=== PATIENT | female | born 1990 | race Two or more races ===

== ENCOUNTER 2024-12-19 06:38 | Emergency (ER) | payer MEDICAID, SELFPAY ==
[2024-12-19 06:41] VITALS: BP 114/69; PULSE 60; RESP 20; TEMP 36.8; O2SAT 100; BMI 34.0
--- NOTE | 2024-12-19 06:52 | EDNOTE_ITS ---
<Statement entered by Paz Kapoor MD - 12/19/24 14:42> As co-signing physician, I was present and available for consult prn. I concur with the plan and care as documented by the midlevel provider. ED Wound/Laceration-RME/HPI General Chief Complaint: Wound/Laceration Stated Complaint: LAC TO RIGHT HAND Time Seen by Provider: 12/19/24 06:41 Arrival date/time: 12/19/24 06:38 34-year-old female presents to the emergency department today for complaint of laceration to her right hand. Patient reports that she excellently cut herself on a new yolk spray drier last night. Limitations: no limitations Related Data Home Medications ?Medication ?Instructions ?Recorded ?Confirmed Vitamin * 1 tab PO QDAY #0 tabs Previous Rx's ?Medication ?Instructions ?Recorded HYDROCODONE BIT/ACETAMINOPHEN 2 tab PO Q6HR PRN Patien t rated 10/01/15 (Vicodin 5/300) pain 7 to 10 #30 tabs bacitracin 500 unit/gram topical 1 applic topical TID 7 days #28.4 12/19/24 ointment grams ibuprofen 600 mg tablet 600 mg PO Q6H #30 tabs 12/19 Allergies Allergy/AdvReac Type Severity Reaction Status Date / Time No Known Allergies Allergy Verified 12/19/24 06:43 Review of Systems Review of Systems Systems Reviewed: All systems reviewed, normal except as documented Constitutional Constitutional: Reports system reviewed and no additional complaints, except as documented, Denies fever(s) and Denies headache(s) Eyes Eyes: Reports system reviewed and no additional complaints, except as documented and Denies blurry vision ENT Ears, Nose, Mouth, and Throat: Reports system reviewed and no additional complaints, except as documented, Denies headache(s), Denies nasal congestion and Denies nasal discharge Cardiovascular Cardiovascular: Reports system reviewed and no additional complaints, except as documented, Denies chest pain and Denies dyspnea Respiratory Respiratory: Reports system reviewed and no additional complaints, except as documented, Denies chest congestion, Denies cough and Denies dyspnea Gastrointestinal Gastrointestinal: Reports system reviewed and no additional complaints, except as documented and Denies abdominal pain Integumentary/Breasts Skin/Breast: Reports system reviewed and no additional complaints, except as documented, Denies rash and Reports wounds (Laceration right hand) Neurologic Neurologic: Reports system reviewed and no additional complaints, except as documented, Reports as per HPI and Denies headache(s) Past Medical History Past Medical History CARDIAC: Negative Congestive Heart Failure RESPIRATORY: Negative Chronic Obstructive Pulmonary Disease (COPD) GENITOURINARY: Negative Renal Disease REPRODUCTIVE: Negative Previous Pregnancies ENDOCRINE: Negative Diabetes Mellitus Type 1 or Diabetes Mellitus Type 2 OTHER HISTORY: Positive Chicken Pox Surgical History SURGICAL: Positive Neurologic Surgery Social History SMOKING STATUS: Never smoker ED Exam General Limitations: Present no limitations General appearance: Present alert and in no apparent distress Head Head exam: Present atraumatic Eye Eye exam: Present normal appearance, PERRL and EOMI ENT ENT exam: Present normal exam, normal oropharynx and mucous membranes moist Neck Neck exam: Present normal inspection, full ROM and trachea midline Chest Chest inspection: Present normal inspection and symmetric chest wall rise Respiratory Respiratory exam: Present normal lung sounds bilaterally Cardiovascular Cardiovascular exam: Present regular rate, normal rhythm and normal heart sounds Abdominal Exam Abdominal exam: Present soft and normal bowel sounds Extremities Exam Extremities exam: Present normal inspection and full ROM Back Exam Back exam: Present normal inspection and full ROM Neurological Exam Neurological exam: Present alert, oriented X3 and CN II-XII intact Psychiatric Psychiatric exam: Present normal affect and normal mood Skin Skin exam: Present warm, dry and other (Laceration right hand) Course Quality Measures none Orders Category Date Time Status Set Up Suture Tray STAT Care 12/19/24 06:52 Active Wound Care NOW Care 12/19/24 06:52 Active Lidocaine 1% 20 ml [Xylocaine 1% 20 ML] Med 12/19/24 06:52 Discontinued 20 ml INFL X1 ONE TET,DIP/PERT AC (Adult)-Tdap [Boostrix Adult (Tdap) Med 12/19/24 06:52 Discontinued Vacc] 0.5 ml IMI .ONCE ONE Vital Signs Vital signs: Vital Signs Temperature 98.2 F 12/19/24 06:41 Pulse Rate 60 12/19/24 06:41 Respiratory Rate 20 12/19/24 06:41 Blood Pressure 114/69 12/19/24 06:41 Pulse Oximetry (%) 100 12/19/24 06:41 Oxygen Delivery Method Room Air 12/19/24 06:41 O2 saturation 100% room air within normal limits Procedures -ED Laceration Laceration 1: Site: hand Side (If applicable): right Size (cm): 4 Description: linear Depth: simple, single layer Amount of anesthesia used (mL): 5 Pre-repair: wound explored and irrigated extensively Skin layer closed with: nylon Size (cm): 4-0 Number of sutures: 6 Wound / Laceration MDM Narrative MDM Narrative:: 34-year-old female presents to the emergency department today for complaint of laceration to her right hand. Patient reports that she excellently cut herself on a new yolk spray drier last night. On exam patient has an approximately 4 cm laceration to the palmar aspect of the right hand Wound irrigated copiously laceration repaired sick sutures applied wound is well-approximated no active bleeding no evidence of tendon or ligamentous injury Patient instructed to have sutures removed in 10 days Patient discharged home in no distress to follow-up with primary care doctor in the next 24 to 48 hours and for any worsening symptoms to return to the ER immediately Patient data External records reviewed:: [facility] previous records Clinical information provided by:: patient Social determinants that could affect healthcare access:: none Patient has the following chronic illnesses:: None How is presenting disease/condition affected by chronic disease/condition?: no chronic disease Evaluation data The following diagnostics were reviewed and interpreted by me:: other (specify) (N/A) Lab and/or radiology exams considered but not ordered:: Consider not ordered Interpretation Summary: N/A Medications / Prescriptions Medications or Prescriptions considered but not ordered:: Given Medication administrations:: Medication Administration History Discontinued Medications Diphtheria/Tetanus/Acell Pertussis (Diphth,Pertuss(Acell),Tet Vac 0.5 Ml Syr- Adult) 0.5 ml IMi .ONCE ONE Stop: 12/19/24 06:53 Last Admin: 12/19/24 07:12 Dose: 0.5 ml Documented By: VLAD Lidocaine HCl (Lidocaine Hcl 1% 20 Ml Vial) 20 ml INFL X1 ONE Stop: 12/19/24 06:53 Last Admin: 12/19/24 07:13 Dose: 20 ml Documented By: VLAD Given Consultations Consultation(s) initiated? (list below): No Diagnosis Wound Differential Diagnosis: laceration, abrasion and avulsion of skin Most likely diagnosis given after review of the tests above:: Laceration Admission Indicated Admission indicated?: not indicated Admission Request Was there a request for admission?: No Disposition Plan Disposition Plan: Discharge Discharge Attestation Discharge Attestation: The patient and all family members were given an opportunity to ask questions and understood the discharge instructions. Discharge instructions specifically effects, indications for sooner follow up or return to the emergency department, and the expected course of current diagnosis. Patient condition: Stable Discharge Plan Plan Patient Disposition: HOME (Self Care) Disposition Comment: Stable Prescriptions/Referrals Prescriptions/Med Rec: New bacitracin 500 unit/gram ointment 1 applic topical TID 7 Days Qty: 28.4 0RF ibuprofen 600 mg tablet 600 mg PO Q6H Qty: 30 0RF No Action Vitamin * 1 EACH tablet 1 tab PO QDAY Qty: 0 HYDROCODONE BIT/ACETAMINOPHEN (Vicodin 5/300) 1 TAB tablet 2 tab PO Q6HR PRN (Reason: Patient rated pain 7 to 10) Qty: 30 0RF Problem List Clinical Impression: Laceration of hand, right Patient/Caregiver Discharge Instructions Education Materials: ED Scar Tips to Minimize Additional Instructions: Please follow up with your primary care doctor in the next 24-48hrs for any worsening symptoms return here immediately Please have sutures removed in 10 days Print Language: Omani Stand Alone Forms: [employer] Award Info., Work/School Release, Patient Portal Info Letter Vaccines Vaccines Given During Stay: TDaP PA/TURKEY EGG GATHERER Supervising Physician PA/TUR[employer] E[employer] GATHERER Supervising Physician: Dr KAPOOR
[2024-12-19] MEDS: DIPHTH,PERTUSS(ACELL),TET VAC 0.5 ML SYR- ADULT IMi (07:12)
[2024-12-19] MEDS: LIDOCAINE HCL 1% 20 ML VIAL INFL (07:13)
== END 2024-12-19 07:47 | disposition home or self-care (01) ==
LOC: SERX 07:18
PROVIDERS: Emergency Provider Emergency Medicine; PCP Physician Assistant
DX: S61.411A Laceration without foreign body of right hand, initial encounter (principal); W29.0XXA Contact with powered kitchen appliance, initial encounter; Z23 Encounter for immunization
CPT/HCPCS: 12002; 90471; 90715; 99283; J3490

== ENCOUNTER 2025-06-02 12:04 | Emergency (ER) | payer MEDICAID, SELFPAY ==
[2025-06-02 12:25] VITALS: PULSE 86; RESP 16; TEMP 37.1; O2SAT 96; BMI 34.3
--- NOTE | 2025-06-02 12:26 | EDNOTE_ITS ---
Upper Respiratory Inf. RME/HPI General Chief Complaint: Fever Stated Complaint: FEVER, COUGH, CHEST PAIN Time Seen by Provider: 06/02/25 12:17 Source: patient Arrival date/time: 06/02/25 12:04 35-year-old female with no known medical history presents to the emergency room with a chief complaint of fever, cough, congestion x 4 days. Patient is currently . Mode of arrival: ambulatory Limitations: no limitations Related Data Home Medications ?Medication ?Instructions ?Recorded ?Confirmed Vitamin * 1 tab PO QDAY #0 tabs Previous Rx's ?Medication ?Instructions ?Recorded HYDROCODONE BIT/ACETAMINOPHEN 2 tab PO Q6HR PRN Patien t rated 10/01/15 (Vicodin 5/300) pain 7 to 10 #30 tabs ibuprofen 600 mg tablet 600 mg PO Q6H #30 tabs 12/19 albuterol sulfate 90 mcg/actuation 2 puff inhalation Q 6H PRN 06/02/25 aerosol inhaler (Ventolin HFA) shortness of breath or wheezing #6.7 grams amoxicillin 500 mg capsule 500 mg PO BID 7 days #14 ca ps 06/02/25 Allergies Allergy/AdvReac Type Severity Reaction Status Date / Time No Known Allergies Allergy Verified 06/02/25 12:07 Review of Systems Review of Systems Systems Reviewed: All systems reviewed, normal except as documented Constitutional Constitutional: Reports system reviewed and no additional complaints, except as documented, Denies fatigue, Denies fever(s), Denies headache(s) and Denies weakness Eyes Eyes: Reports system reviewed and no additional complaints, except as documented, Denies blurry vision and Denies change in vision ENT Ears, Nose, Mouth, and Throat: Reports system reviewed and no additional complaints, except as documented, Denies otalgia, Denies headache(s), Denies nasal congestion, Denies throat swelling and Denies vertigo Cardiovascular Cardiovascular: Reports system reviewed and no additional complaints, except as documented, Denies chest pain, Reports dyspnea and Denies dyspnea on exertion Respiratory Respiratory: Reports system reviewed and no additional complaints, except as documented, Reports change in phlegm color, Denies chest congestion, Reports cough, Reports dyspnea, Denies dyspnea on exertion and Denies wheezing Gastrointestinal Gastrointestinal: Reports system reviewed and no additional complaints, except as documented, Denies abdominal pain, Denies cramping, Denies nausea and Denies vomiting Genitourinary Genitourinary: Reports system reviewed and no additional complaints, except as documented Musculoskeletal Musculoskeletal: Reports system reviewed and no additional complaints, except as documented and Denies back pain Integumentary/Breasts Skin/Breast: Reports system reviewed and no additional complaints, except as documented and Denies wounds Neurologic Neurologic: Reports system reviewed and no additional complaints, except as documented, Denies confusion, Denies headache(s), Denies lack of coordination, Denies vertigo and Denies weakness Psychiatric Psychiatric: Reports system reviewed and no additional complaints, except as documented, Denies anxiety, Denies confusion, Denies depression, Denies paranoia, Denies suicidal ideation and Denies tactile hallucinations Endocrine Endocrine: Reports system reviewed and no additional complaints, except as documented and Denies fatigue Hematologic/Lymphatic Hematologic/Lymphatic: Reports system reviewed and no additional complaints, except as documented and Denies lymphadenopathy Allergic/Immunologic Allergic/Immunologic: Reports system reviewed and no additional complaints, except as documented, Denies throat swelling, Denies urticaria and Denies wheezing Past Medical History Past Medical History CARDIAC: Negative Congestive Heart Failure RESPIRATORY: Negative Chronic Obstructive Pulmonary Disease (COPD) GENITOURINARY: Negative Renal Disease REPRODUCTIVE: Negative Previous Pregnancies ENDOCRINE: Negative Diabetes Mellitus Type 1 or Diabetes Mellitus Type 2 OTHER HISTORY: Positive Chicken Pox Surgical History SURGICAL: Positive Neurologic Surgery Social History SMOKING STATUS: Never smoker ED Exam General Limitations: Present no limitations General appearance: Present alert and in no apparent distress Head Head exam: Present atraumatic Eye Eye exam: Present normal appearance, PERRL and EOMI ENT ENT exam: Present normal exam, normal oropharynx and mucous membranes moist Neck Neck exam: Present normal inspection, full ROM and trachea midline Chest Chest inspection: Present normal inspection and symmetric chest wall rise Respiratory Respiratory exam: Present normal lung sounds bilaterally; Absent respiratory distress, wheezes, stridor, accessory muscle use or prolonged expiratory phase Cardiovascular Cardiovascular exam: Present regular rate, normal rhythm and normal heart sounds; Absent tachycardia Abdominal Exam Abdominal exam: Present soft and normal bowel sounds Extremities Exam Extremities exam: Present normal inspection and full ROM Back Exam Back exam: Present normal inspection and full ROM Neurological Exam Neurological exam: Present alert, oriented X3 and CN II-XII intact Psychiatric Psychiatric exam: Present normal affect and normal mood Skin Skin exam: Present warm, dry, intact and normal color Course Quality Measures none Orders Category Date Time Status Bedside COVID-19 Antigen Test NOW Care 06/02/25 12:26 Completed Influenza A & B Rapid Panel Stat Lab 06/02/25 12:42 Completed Vital Signs Vital signs: Vital Signs Temperature 98.7 F 06/02/25 12:25 Pulse Rate 86 06/02/25 12:25 Respiratory Rate 16 06/02/25 12:25 Pulse Oximetry (%) 96 06/02/25 12:25 Oxygen Delivery Method Room Air 06/02/25 12:25 Upper Respiratory Infection MDM Narrative MDM Narrative:: 35-year-old female with no known medical history presents to the emergency room with a chief complaint of fever, cough, congestion x 4 days. Patient is currently . Patient is hemodynamically stable and in no apparent distress. The patient is afebrile not tachycardic not tachypneic Lung sounds are clear bilaterally there is no wheezing or any abnormal breath sounds. COVID-19 and influenza test were both negative. Patient was discharged and educated to follow-up with primary care provider in the next 24 to 48 hours and return to the emergency room for any evidence of worsening signs or symptoms Patient data External records reviewed:: [facility] previous records Clinical information provided by:: patient Social determinants that could affect healthcare access:: none Patient has the following chronic illnesses:: No chronic illness How is presenting disease/condition affected by chronic disease/condition?: no chronic disease Evaluation data The following diagnostics were reviewed and interpreted by me:: lab results and radiology exam(s) Lab and/or radiology exams considered but not ordered:: Labs and radiology exams considered and ordered Interpretation Summary: N/A Medications / Prescriptions Medications or Prescriptions considered but not ordered:: No medication given Medication administrations:: No medication given Consultations Consultation(s) initiated? (list below): No Diagnosis Upper Respiratory Differential Diagnosis: upper respiratory infection, viral infection, influenza and other (COVID-19/community-acquired pneumonia) Most likely diagnosis given after review of the tests above:: Upper respiratory infection Admission Indicated Admission indicated?: not indicated Admission Request Was there a request for admission?: No Disposition Plan Disposition Plan: Discharge Discharge Attestation Discharge Attestation: The patient and all family members were given an opportunity to ask questions and understood the discharge instructions. Discharge instructions specifically effects, indications for sooner follow up or return to the emergency department, and the expected course of current diagnosis. Patient condition: Stable Discharge Plan Plan Patient Disposition: HOME (Self Care) Prescriptions/Referrals Prescriptions/Med Rec: New amoxicillin 500 mg capsule 500 mg PO BID 7 Days Qty: 14 0RF albuterol sulfate [Ventolin HFA] 90 mcg/actuation HFA aerosol inhaler 2 puff inhalation Q6H PRN (Reason: shortness of breath or wheezing) Qty: 6.7 0RF No Action Vitamin * 1 EACH tablet 1 tab PO QDAY Qty: 0 HYDROCODONE BIT/ACETAMINOPHEN (Vicodin 5/300) 1 TAB tablet 2 tab PO Q6HR PRN (Reason: Patient rated pain 7 to 10) Qty: 30 0RF ibuprofen 600 mg tablet 600 mg PO Q6H Qty: 30 0RF Referrals: Tonny (RAMILA)Hilda PA-C [Primary Care Provider, PUBLIC HEALTH SERVICE OFFICER] - In 1 week Problem List Clinical Impression: Upper respiratory infection, viral Patient/Caregiver Discharge Instructions Education Materials: ED URI, Viral, No Abx (Adult) Additional Instructions: Please follow-up with your primary care provider in the next 24 to 48 hours Your COVID-19 and influenza test were both negative You are currently so we cannot x-ray you Antibiotics are sent to your pharmacy please pick them up and take them as indicated For any evidence of worsening signs or symptoms return to the emergency room immediately Print Language: Thai Stand Alone Forms: [employer] Award Info., Work/School Release, Patient Portal Info Letter
[2025-06-02 13:34] LABS: Influenza A Ag Negative; Influenza B Ag Negative
== END 2025-06-02 14:01 | disposition home or self-care (01) ==
PROVIDERS: Emergency Provider Nurse Practitioner Family; PCP Physician Assistant Medical
DX: O26.899 Other specified pregnancy related conditions, unspecified trimester (principal); J06.9 Acute upper respiratory infection, unspecified; Z3A.00 Weeks of gestation of pregnancy not specified
CPT/HCPCS: 87502; 87811; 99283